=== PATIENT | male | born 1995 | race American Indian/Alaskan Native ===

== ENCOUNTER 2021-11-26 21:14 | Emergency (ER) | payer SELFPAY ==
[2021-11-26 21:34] VITALS: BP 146/93
--- NOTE | 2021-11-26 21:59 | XRay Report ---
CHEST 2 VIEWS INDICATION / CLINICAL INFORMATION: CHEST PAIN. Substernal chest pain x1 hour COMPARISON: None available. FINDINGS: SUPPORT DEVICES: None. HEART / MEDIASTINUM: No significant abnormality. LUNGS / PLEURA: No significant pulmonary or pleural abnormality. No pneumothorax. ADDITIONAL FINDINGS: No significant additional findings. IMPRESSION: 1. No acute findings. Signer Name: Anne Ramirez MD Signed: 11/26/2021 9:54 PM Workstation Name: [id number]
--- NOTE | 2021-11-27 18:03 | Electrocardiograph Report ---
[facility] Test Date: 2021-11-26 Test Time: 21:41:40 Pat Name: JOSE LUIS GUADARRAMA Department: Room: Gender: M Retail Salesperson: : [id number] Requested By: TALA DELANEY Order Number: [id number] Reading MD: Jose Luis Magdaleno Measurements Intervals [place] Rate: 64 P: 25 CO: 150 QRS: 43 QRSD: 100 T: 17 QT: 399 QTc: 411 Interpretive Statements Sinus rhythm Early repolarization ST changes No previous ECG available for comparison Electronically Signed On 11-27-2021 18:02:58 EDT by Jose Luis Magdaleno
== END 2021-11-27 00:21 | disposition left against medical advice (07) ==
LOC: ED 21:14
DX: R07.89 Other chest pain (principal); Z53.21 Procedure and treatment not carried out due to patient leaving prior to being seen by health care provider
CPT/HCPCS: 71046; 93005